=== PATIENT | male | born 1995 | race Caucasian/White ===

== ENCOUNTER 2022-11-24 20:20 | Emergency (ER) | payer BC, SELFPAY ==
[2022-11-24 20:37] VITALS: BP 170/116; PULSE 111; RESP 16; TEMP 36.4; O2SAT 100
--- NOTE | 2022-11-25 07:29 | ED.PSYCH ---
HPI - Psych General Chief Complaint: Psychiatric Problem/Disorder Stated Complaint: Mental Health Time Seen by Provider: 11/24/22 21:00 History of Present Illness HPI Narrative: 27-year-old young man presenting to the emergency department with concern of significant grief at having realized of 20 week today. He is attended here by OB nursing staff. They are pending passage of /products of conception. He apparently did manage to fall asleep and was noted to be crying in his sleep and woke up crying. He just feels like he wants to explode. Does have a 1-year-old boy who is attended at home by other family. [place] went through stress otherwise when he was younger with separation of his parents and he feels like some of this is coming to a head. Has been treated for some degree of depression over the years. No history of hospitalization. No history of attempts at self-harm. Is not expressing interest in self-harm or harm to anyone else. He wants to be available for his and his family. Is feeling quite overwhelmed. Related Data Home Medications Medication Instructions Recorded Confirmed bupropion HCl 150 mg 24 hr tablet, 150 mg PO DAILY 11/24/22 11/24/22 extended release (Wellbutrin XL) cetirizine 10 mg capsule (All Day 10 mg PO DAILY PRN 11/24/22 11/24/22 Allergy (cetirizine)) Allergies Allergy/AdvReac Type Severity Reaction Status Date / Time amoxicillin [From Augmentin] Allergy Verified 11/24/22 20:46 clavulanic acid Allergy Verified 11/24/22 20:46 [From Augmentin] Review of Systems Status of ROS: Reports: 6 or more systems reviewed and unremarkable except as noted in History and below PFSH [facility] Social History Smoking Status: Never smoker How often do you have a drink containing alcohol: monthly or less AUDIT-C Alcohol total score: 1 Non-prescribed substance use: denies use Exam Narrative: Exam Narrative: Is pleasant. Clearly distressed but generally calm. Large man. Sclera quite injected is puffy around his eyes consistent with crying. Is breathing easily and lungs appear to be clear. Consistent nasopharyngeal congestion. Speech isn't pressured or slurred. Thought content is sad. Mood is sad/depressed and affect appropriate. Thoughtful. Heart is with elevated rate. Const: Vital Signs, click to edit/add: Vital Signs - 24 hr 11/24/22 20:37 Temperature 97.5 F L Pulse Rate [Left P ulse Oximeter] 111 H Respiratory Rate 16 Blood Pressure [Ri ght Upper Arm] 170/116 H Pulse Oximetry 100 Oxygen Delivery Me thod Room Air Documenting provider has reviewed patient's vital signs: yes Course Vital Signs Vital signs: Initial Vital Signs Temperature 97.5 F L 11/24/22 20:37 Temperature Source Temporal Artery Scan 11/24/22 20:37 Pulse Rate 111 H 11/24/22 20:37 Pulse Rhythm 11/24/22 20:37 Respiratory Rate 16 11/24/22 20:37 Blood Pressure 170/116 H 11/24/22 20:37 Blood Pressure Mean 134 11/24/22 20:37 Pulse Oximetry 100 11/24/22 20:37 Oxygen Delivery Method 11/24/22 20:37 Vital Signs Temperature 97.5 F L 11/24/22 20:37 Pulse Rate 111 H 11/24/22 20:37 Respiratory Rate 16 11/24/22 20:37 Blood Pressure 170/116 H 11/24/22 20:37 Pulse Oximetry 100 11/24/22 20:37 Oxygen Delivery Method 11/24/22 20:37 Temperature 97.5 F L 11/24/22 20:37 Pulse Rate 111 H 11/24/22 20:37 Respiratory Rate 16 11/24/22 20:37 Blood Pressure 170/116 H 11/24/22 20:37 Pulse Oximetry 100 11/24/22 20:37 Oxygen Delivery Method 11/24/22 20:37 MDM - Psych MDM Narrative Medical decision making narrative: We spent some time talking and in [place] together. Mr. Mcgill is understandably grieving. I do not see any red flags at this time. Discharge Plan Discharge Clinical Impression: Grief reaction Patient Disposition: Home w/ Parent or Adult Condition: Stable Additional Instructions: Stay hydrated. Try to get regular and quality sleep. Get that exercise you were talking about. (There might be a treadmill in the hospital too if it helps) Do follow up with that therapy is discussed. Otherwise keep sharing with and supporting one another. Hold your boy. If you begin to feel unsafe still after talking with friends and family or therapist, please return to the emergency department. lorazepam if needed from [facility]. Prescriptions: No Action All Day Allergy (cetirizine) 10 mg capsule 10 mg PO DAILY PRN bupropion HCl [Wellbutrin XL] 150 mg tablet extended release 24 hr 150 mg PO DAILY Stand Alone Forms: [employer] Info Instructions
== END 2022-11-24 21:39 | disposition home or self-care (01) ==
LOC: ED 21:22
PROVIDERS: Emergency Provider Family Medicine
DX: F43.20 Adjustment disorder, unspecified (principal)
CPT/HCPCS: 99283